=== PATIENT | female | born 2005 | race Caucasian/White ===

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

== ENCOUNTER → 2025-03-14 | Outpatient (CLI) | payer BC | END | disposition home or self-care (01) | LOC: US 14:18 | PROVIDERS: ATTEND Obstetrics & Gynecology | DX: R10.20 Pelvic and perineal pain unspecified side (principal); N92.0 Excessive and frequent menstruation with regular cycle ==